=== PATIENT | male | born 1950 | race Caucasian/White ===

== ENCOUNTER → 2016-12-27 | Outpatient (CLI) | payer MEDICARE, OTHER ==
[~2016-12-27] MED LIST: ACCUTES19 XX; AMLO10TA2 PO; ATOR40TA16 PO; BLOOD GLUCOSE T1 TES; HYDR25TA5 PO; KETO2AER3; LANTINJ SQ; LISI40TA PO; NADO20TA PO; PNEU13P IM; POTA-245 PO; SITA50 PO; VIAG50TA PO; [UNRECOGNIZED DRUG - CODE] SQ
[2016-12-27 10:18] LABS: HEMOGLOBIN A1a 1.3 %; HEMOGLOBIN A1b 1.6 %; HEMOGLOBIN Ao 83.5 %; HEMOGLOBIN LA1C 2.1 %; HEMOGLOBIN P3 3.6 %
== END ==
LOC: CLAB 07:16
PROVIDERS: ATTEND Family Medicine Sports Medicine
DX: E11.9 Type 2 diabetes mellitus without complications (principal)
CPT/HCPCS: 36415; 83036

== ENCOUNTER → 2017-04-07 | Outpatient (CLI) | payer MEDICARE, OTHER ==
[~2017-04-07] MED LIST changes: +AMLO5TAB2 PO; +CO Q100C9; +FOLI400T PO; -PNEU13P IM; +VITA250T3 PO; +VITA400T20
[2017-04-07 08:55] LABS: BASOPHIL % 0.7 % (0.0-2.0); EOSINOPHIL # 0.1 TH/MM3 (0-0.4); HEMATOCRIT 42.3 % (39.0-51.0); HEMO FLAGS DIFF FINAL; LYMPH % 19.4 % (9.0-44.0); LYMPHOCYTE # 1.2 TH/MM3 (1.0-4.8); MEAN CELL VOLUME 85.3 FL (80.0-100.0); MEAN CORPUSCULAR HEMOGLOBIN 29.1 PG (27.0-34.0); MEAN CORPUSCULAR HGB CONC 34.1 % (32.0-36.0); MONO % 11.4 % (0.0-8.0); NEUT % 66.5 % (16.0-70.0); PLATELET COUNT 146 TH/MM3 (150-450); RED BLOOD COUNT 4.96 MIL/MM3 (4.50-5.90); RED CELL DISTRIBUTION WIDTH 13.5 % (11.6-17.2)
[2017-04-07 09:14] LABS: ANION GAP 5 MEQ/L (5-15); BICARBONATE 32.1 MEQ/L (21.0-32.0); BLOOD UREA NITROGEN 13 MG/DL (7-18); CHLORIDE 97 MEQ/L (98-107); GLOMERULAR FILTRATION RATE 88 ML/MIN (>89); GLUCOSE,FASTING 154 MG/DL (74-99); POTASSIUM 4.1 MEQ/L (3.5-5.1); SODIUM (NA) 134 MEQ/L (136-145)
[2017-04-07 09:17] LABS: HDL CHOLESTEROL 35.4 MG/DL (40.0-60.0); LDL CHOLESTEROL 73 MG/DL (0-99)
[2017-04-07 16:53] LABS: HEMOGLOBIN A1b 1.8 %; HEMOGLOBIN Ao 83.4 %; HEMOGLOBIN LA1C 2.3 %; HEMOGLOBIN P3 3.9 %
== END ==
LOC: CLAB 08:20
PROVIDERS: ATTEND Family Medicine Sports Medicine
DX: E11.9 Type 2 diabetes mellitus without complications (principal); E78.5 Hyperlipidemia, unspecified; I10 Essential (primary) hypertension; Z12.5 Encounter for screening for malignant neoplasm of prostate
CPT/HCPCS: 36415; 80048; 80061; 83036; 84153; 84154; 85025

== ENCOUNTER → 2017-06-28 | Outpatient (CLI) | payer MEDICARE, OTHER ==
[~2017-06-28] MED LIST changes: -AMLO10TA2 PO; +DILT-60 PO; +INFL1INJ56 IM; -KETO2AER3; +SITA25 PO
[2017-06-28 08:27] LABS: ALBUMIN 3.9 GM/DL (3.4-5.0); AST (GOT) 22 U/L (15-37); BICARBONATE 31.1 MEQ/L (21.0-32.0); BLOOD UREA NITROGEN 11 MG/DL (7-18); CHLORIDE 98 MEQ/L (98-107); CREATININE 0.74 MG/DL (0.60-1.30); GLOMERULAR FILTRATION RATE 106 ML/MIN (>89); GLUCOSE,FASTING 153 MG/DL (74-99); SODIUM (NA) 134 MEQ/L (136-145)
[2017-06-28 08:28] LABS: ALT (GPT) 39 U/L (12-78)
[2017-06-28 08:31] LABS: ALKALINE PHOSPHATASE 79 U/L (45-117); TOTAL BILIRUBIN ADULT 0.5 MG/DL (0.2-1.0); TOTAL PROTEIN 7.5 GM/DL (6.4-8.2)
[2017-06-28 10:48] LABS: HEMOGLOBIN A1C 7.6 % (4.3-6.0)
== END ==
LOC: CLAB 07:18
PROVIDERS: ATTEND Family Medicine
DX: I10 Essential (primary) hypertension (principal); E11.9 Type 2 diabetes mellitus without complications; E78.5 Hyperlipidemia, unspecified
CPT/HCPCS: 36415; 80053; 82043; 83036

== ENCOUNTER → 2017-08-17 | Outpatient (CLI) | payer MEDICARE, OTHER ==
[~2017-08-17] MED LIST changes: -ACCUTES19 XX; -AMLO5TAB2 PO; -DILT-60 PO; +DILT120C50 PO; -INFL1INJ56 IM; +KLOR20TA3 PO; -POTA-245 PO; +SPIR25TA PO; +SPIR50TA PO
== END ==
LOC: CLAB 07:21
PROVIDERS: ATTEND Family Medicine
DX: Z51.81 Encounter for therapeutic drug level monitoring (principal)
CPT/HCPCS: 36415; 84132

== ENCOUNTER → 2017-10-17 | Outpatient (CLI) | payer MEDICARE, OTHER ==
[~2017-10-17] MED LIST changes: +CARV6.25 PO; -DILT120C50 PO; -NADO20TA PO; -SITA25 PO; -SPIR25TA PO; -SPIR50TA PO
[2017-10-17 08:21] LABS: ALBUMIN 4.1 GM/DL (3.4-5.0); AST (GOT) 20 U/L (15-37); BICARBONATE 32.3 MEQ/L (21.0-32.0); BLOOD UREA NITROGEN 11 MG/DL (7-18); CALCIUM 9.1 MG/DL (8.5-10.1); CHLORIDE 96 MEQ/L (98-107); CREATININE 0.87 MG/DL (0.60-1.30); GLOMERULAR FILTRATION RATE 88 ML/MIN (>89); GLUCOSE,FASTING 245 MG/DL (74-99); SODIUM (NA) 135 MEQ/L (136-145)
[2017-10-17 08:25] LABS: ALKALINE PHOSPHATASE 85 U/L (45-117); ALT (GPT) 35 U/L (12-78); TOTAL BILIRUBIN ADULT 0.6 MG/DL (0.2-1.0); TOTAL PROTEIN 7.8 GM/DL (6.4-8.2)
== END ==
LOC: CLAB 07:26
PROVIDERS: ATTEND Family Medicine
DX: I10 Essential (primary) hypertension (principal); E11.9 Type 2 diabetes mellitus without complications
CPT/HCPCS: 36415; 80053; 83036

== ENCOUNTER → 2017-12-14 | Outpatient (CLI) | payer MEDICARE, OTHER ==
[2017-12-14 08:30] LABS: BICARBONATE 29.6 MEQ/L (21.0-32.0); BLOOD UREA NITROGEN 12 MG/DL (7-18); CALCIUM 9.1 MG/DL (8.5-10.1); CHLORIDE 102 MEQ/L (98-107); CREATININE 0.86 MG/DL (0.60-1.30); GLOMERULAR FILTRATION RATE 89 ML/MIN (>89); GLUCOSE,FASTING 133 MG/DL (74-99); SODIUM (NA) 137 MEQ/L (136-145)
[2017-12-14 15:22] LABS: HEMOGLOBIN A1C 8.1 % (4.3-6.0)
[2017-12-16 14:24] LABS: RENIN 1.2 ng/mL/h
== END ==
LOC: CLAB 07:21
PROVIDERS: ATTEND Family Medicine
DX: I10 Essential (primary) hypertension (principal); E11.65 Type 2 diabetes mellitus with hyperglycemia
CPT/HCPCS: 36415; 80048; 82088; 83036; 84244